=== PATIENT | female | born 1985 | race Caucasian/White ===

== ENCOUNTER 2017-04-21 17:53 | Emergency (ER) | payer MEDICAID ==
[~2017-04-21] VITALS: Wt 68.0 kg
[~2017-04-21 17:53] MED LIST: AZIT500T3 PO; BISM262O23 PO; METR500T PO; PREN1TAB12 PO
[2017-04-21] MEDS ORDERED: KETOROLAC 30 MG INJ IM STA (18:40)
[2017-04-21 19:25] LABS: URINE BLOOD (Dip) POC 3+ (NEGATIVE)
[2017-04-21] MEDS ORDERED: NITROFURANTOIN (SR) 100 MG CAP PO STA (19:34)
[2017-04-21] MEDS ORDERED: NITR-58 PO (19:35)
[2017-04-21] MEDS ORDERED: PHEN-538 PO (19:37)
[2017-04-21 19:49] VITALS: BP 126/77; PULSE 74; RESP 18; TEMP 97.8
--- NOTE | 2017-04-23 21:09 | ERD ---
ER Documentation Chief Complaint Date/Time DATE: 04/23/17 TIME: 21:05 Chief Complaint LOW BACK PAIN FOR THE PAST 2 DAYS. DYSURIA AND HEMATURIA HPI This is a 31-year-old female presenting to the emergency department complaining of pelvic and lower back pain for the past 2 days. Patient rates the pain 8 out of 10. She also admits to having painful urination and blood in the urine. She denies any fevers. Denies any and medication for this ROS All systems reviewed and are negative except as per history of present illness. Medications Home Meds Active Scripts Phenazopyridine Hcl* (Pyridium*) 200 Mg Tab, 200 MG PO TID Y for URINARY PAIN, # 6 TAB Prov:SIRI REBOLLAR PA-C 04/21/17 Nitrofurantoin Monohyd Macrocr* (Macrobid*) 100 Mg Capsr, 100 MG PO BID, #14 CAP Prov:SIRI REBOLLAR PA-C 04/21/17 Bismuth Subsalicylate* (Pepto-Bismol*) 262 Mg/15 Ml Oral.susp, 15 ML PO Q3H for 7 Days, ML Prov:BRIGITTE SANTIAGO MD 08/15/16 Metronidazole* (Flagyl*) 500 Mg Tablet, 500 MG PO TID for 7 Days, TAB Prov:BRIGITTE SANTIAGO MD 08/15/16 Azithromycin* (Zithromax*) 500 Mg Tablet, 500 MG PO DAILY for 3 Days, TAB Prov:BRIGITTE SANTIAGO MD 08/15/16 Reported Medications Vit/Fe Fumarate/Fa ( 1-1 Tablet) 1 Tab Tablet, 1 TAB PO DAILY, #1 10/18/12 Allergies Allergies: Coded Allergies: No Known Drug Allergies (Verified Allergy, Unknown, 05/23/16) PMhx/Soc History of Surgery: No Anesthesia Reaction: No Hx Neurological Disorder: No Hx Respiratory Disorders: No Hx Cardiac Disorders: No Hx Psychiatric Problems: No Hx Miscellaneous Medical Probl: No Hx Alcohol Use: No Hx Substance Use: No Hx Tobacco Use: No Smoking Status: Never smoker Physical Exam Vitals Vital Signs Date Time Temp Pulse Resp B/P Pulse Ox O2 Delivery O2 Flow Rate FiO2 04/21/17 19:49 97.8 74 18 126/77 100 Room Air 04/21/17 17:56 98.5 96 20 136/71 98 Physical Exam GENERAL: well-developed/well-nourished, in no apparent distress, non-toxic appearing HENT: NC/AT, moist mucous membranes EYES: Conjunctiva normal NECK: Supple, no lymphadenopathy PULM: CTA bilaterally, no rales, rhonchi, or wheezing heard CV: Normal S1S2, RRR, good capillary refill GI: Soft, non-distended, tender to palpation and pelvic region Normal bowel sounds, no masses or organomegaly felt on exam No gross peritonitis, no bruits Negative Rovsing, negative Tai, negative McBurney's point, Negative CVAT BACK: No masses EXT: No clubbing, cyanosis, or edema NEURO: Alert and Orientated SKIN: Intact, normal turgor PSYCH: Normal mood and mentation Results 24 hrs Laboratory Tests Test 04/21/17 19:31 Bedside Urine pH (LAB) 7.0 Bedside Urine Protein (LAB) 1+ Bedside Urine Glucose (UA) Negative Bedside Urine Ketones (LAB) Negative Bedside Urine Blood 3+ Bedside Urine Nitrite (LAB) Negative Bedside Urine Leukocyte Esterase (L 3+ Current Medications Medications (Trade) Dose Ordered Sig/George Route PRN Reason Start Time Stop Time Status Last Admin Dose Admin Ketorolac Tromethamine (Toradol) 30 mg ONCE STAT IM 04/21/17 18:40 04/21/17 18:42 DC 04/21/17 19:28 Nitrofurantoin Macrocrystals (Macrobid) 100 mg ONCE STAT PO 04/21/17 19:34 04/21/17 19:35 DC 04/21/17 19:49 Procedures/MDM This is a 31-year-old female presenting to the emergency department complaining of flank pain, dysuria and hematuria for the past 2 days which is likely due to urinary tract infection. I will low suspicion for pyelonephritis. Patient appears well, nontoxic appearing. She did not have any CVA tenderness. In the ED p urinalysis was done and was positive for urinary tract infection. Urine test negative. I discussed with her to return to the ER for worsening symptoms. She understands and agrees with plan. Prescription for Macrobid was provided Departure Diagnosis: Primary Impression: UTI (urinary tract infection) Condition: Stable Patient Instructions: Understanding Urinary Tract Infections (UTIs) Additional Instructions: FOLLOW UP WITH YOUR PRIMARY CARE PHYSICIAN TOMORROW.Return to this facility if you are not improving as expected. Take all medicines as directed. Return to this facility if you are not improving as expected. SIRI REBOLLAR PA-C Apr 23, 2017 21:08
== END 2017-04-21 19:50 | disposition home or self-care (01) ==
LOC: FTE 17:53
DX: N39.0 Urinary tract infection, site not specified (principal)
CPT/HCPCS: 81003; J1885; Z7610; 96372

== ENCOUNTER 2017-05-06 17:43 | Emergency (ER) | payer MEDICAID ==
[~2017-05-06] VITALS: Wt 68.5 kg
[~2017-05-06 17:43] MED LIST changes: +NITR-58 PO; +PHEN-538 PO
[2017-05-06] MEDS ORDERED: KETOROLAC 30 MG INJ IM STA (18:47)
[2017-05-06] MEDS ORDERED: CEFTRIAXONE 1 GM INJ IM ONE (19:00)
[2017-05-06] MEDS ORDERED: LIDOCAINE 2% (MDV) 20 ML INJ INJ ONE (19:00)
[2017-05-06 19:14] LABS: URINE BLOOD (Dip) POC Trace-intact (NEGATIVE)
--- NOTE | 2017-05-06 19:25 | RADRPT ---
PROCEDURE: Retroperitoneal US. CLINICAL INDICATION: Flank pain TECHNIQUE: Multiple sonographic images of the kidneys and retroperitoneum were obtained. The imag es were reviewed on a PACS workstation. COMPARISON: No prior studies are available for comparison. FINDINGS: The kidneys are normal in size, contour, cortical thickness and cortical echogenicity. The right kidney measures 12.0 cm. The left kidney measures 11.1 cm. No kidney stones are visualized. There is no evidence for hydronephrosis. The urinary bladder is normal. RPTAT: AA IMPRESSION: Unremarkable retroperitoneal ultrasound. .Gigi Olivares MD, MD Date Time Electronically viewed and signed by .Gigi Olivares MD, on 05/06/2017 19:25 .S/
[2017-05-06 20:07] LABS: BASOPHIL # 0.1 10^3/ul (0.0-0.1); BASOPHILS % 0.6 % (0.0-2.0); EOSINOPHILS # 0.2 10^3/ul (0.0-0.5); EOSINOPHILS % 1.5 % (0.0-7.0); HEMATOCRIT 38.1 % (37.0-47.0); HEMOGLOBIN 12.2 g/dl (12.0-16.0); LYMPHOCYTES # 1.9 10^3/ul (0.8-2.9); LYMPHOCYTES % 17.9 % (15.0-51.0); MEAN CORPUSCULAR HEMOGLOBIN 27.9 pg (29.0-33.0); MEAN CORPUSCULAR VOLUME 87.2 fl (82.0-101.0); MEAN PLATELET VOLUME 9.4 fl (7.4-10.4); MONOCYTE # 0.7 10^3/ul (0.3-0.9); MONOCYTES % 6.8 % (0.0-11.0); NEUTROPHIL # 7.5 10^3/ul (1.6-7.5); NEUTROPHILS % 72.4 % (39.0-77.0); PLATELET COUNT 436 10^3/UL (140-415); RED BLOOD COUNT 4.37 10^6/ul (4.20-5.40); RED CELL DISTRIBUTION WIDTH 13.8 % (11.5-14.5); WHITE BLOOD COUNT 10.4 10^3/ul (4.8-10.8)
[2017-05-06 20:18] LABS: ADD UMIC YES; UR ASCORBIC ACID NEGATIVE (NEGATIVE); UR BILIRUBIN (Dip) NEGATIVE (NEGATIVE); UR BLOOD (Dip) NEGATIVE (NEGATIVE); UR CLARITY CLOUDY (CLEAR); UR COLOR YELLOW (YELLOW); UR GLUCOSE (Dip) NEGATIVE (NEGATIVE); UR KETONES (Dip) NEGATIVE (NEGATIVE); UR LEUKOCYTE ESTERASE (Dip) 3+ Leu/ul (NEGATIVE); UR NITRITE (Dip) NEGATIVE (NEGATIVE); UR RBC 5 /HPF (0-5); UR SPECIFIC GRAVITY (Dip) 1.018 (1.003-1.030); UR SQUAMOUS EPITHELIAL CELL FEW /HPF (FEW); UR TOTAL PROTEIN (Dip) 1+ mg/dl (NEGATIVE); UR UROBILINOGEN (Dip) 1+ mg/dL (NEGATIVE)
[2017-05-06 20:29] LABS: ALBUMIN 4.7 g/dl (3.3-4.9); ALBUMIN/GLOBULIN RATIO 1.14; BILIRUBIN,INDIRECT 0.2 mg/dl (0-1.1); BILIRUBIN,TOTAL 0.2 mg/dl (0.2-1.3); CALCIUM 9.1 mg/dl (8.4-10.2); CREATININE 0.73 mg/dl (0.44-1.00); POTASSIUM 3.9 mmol/L (3.5-5.1); TOTAL PROTEIN 8.8 g/dl (6.1-8.1)
[2017-05-06] MEDS ORDERED: CIPR500T4 PO (20:35)
[2017-05-06] MEDS ORDERED: NAPR-260 PO (20:36)
--- NOTE | 2017-05-06 20:57 | ERD ---
ER Documentation Chief Complaint Date/Time DATE: 05/06/17 TIME: 20:52 Chief Complaint BACK PAIN WITH DYSURIA X 2 DAYS HPI This patient is a 32-year-old female presenting to the emergency department with complaints of right mid back pain and dysuria worsening over the past 2 days. The patient was seen here approximately 2 weeks ago and was diagnosed with UTI and sent home with a prescription for Macrobid twice a day for 7 days. The patient completed all of her medication. Her symptoms improved slightly after the course of the medication, however then they returned and they are worse now. She rates the pain a 9 out of 10 on the pain scale. Symptoms are intermittent. Symptoms are worsening overall. She denies hematuria, nausea, vomiting, diarrhea, or other symptoms currently. ROS All systems reviewed and are negative except as per history of present illness. Medications Home Meds Active Scripts Naproxen* (Naprosyn*) 500 Mg Tablet, 500 MG PO BID Y for PAIN AND/OR INFLAMMATION, #30 TAB Prov:FENG JAIMES PA-C 05/06/17 Ciprofloxacin Hcl* (Ciprofloxacin Hcl*) 500 Mg Tablet, 500 MG PO BID for 10 Days , #20 TAB Prov:FENG JAIMES PA-C 05/06/17 Phenazopyridine Hcl* (Pyridium*) 200 Mg Tab, 200 MG PO TID Y for URINARY PAIN, # 6 TAB Prov:SIRI REBOLLAR PA-C 04/21/17 Nitrofurantoin Monohyd Macrocr* (Macrobid*) 100 Mg Capsr, 100 MG PO BID, #14 CAP Prov:SIRI REBOLLAR PA-C 04/21/17 Bismuth Subsalicylate* (Pepto-Bismol*) 262 Mg/15 Ml Oral.susp, 15 ML PO Q3H for 7 Days, ML Prov:BRIGITTE SANTIAGO MD 08/15/16 Metronidazole* (Flagyl*) 500 Mg Tablet, 500 MG PO TID for 7 Days, TAB Prov:BRIGITTE SANTIAGO MD 08/15/16 Azithromycin* (Zithromax*) 500 Mg Tablet, 500 MG PO DAILY for 3 Days, TAB Prov:BRIGITTE SANTIAGO MD 08/15/16 Reported Medications Vit/Fe Fumarate/Fa ( 1-1 Tablet) 1 Tab Tablet, 1 TAB PO DAILY, #1 10/18/12 Allergies Allergies: Coded Allergies: No Known Drug Allergies (Verified Allergy, Unknown, 05/23/16) PMhx/Soc History of Surgery: No Anesthesia Reaction: No Hx Neurological Disorder: No Hx Respiratory Disorders: No Hx Cardiac Disorders: No Hx Psychiatric Problems: No Hx Miscellaneous Medical Probl: No Hx Alcohol Use: No Hx Substance Use: No Hx Tobacco Use: No Smoking Status: Never smoker Physical Exam Vitals Vital Signs Date Time Temp Pulse Resp B/P Pulse Ox O2 Delivery O2 Flow Rate FiO2 05/06/17 17:50 99.1 86 20 141/72 99 Physical Exam Const: Nontoxic, well-appearing female in mild distress secondary to pain. Head: Atraumatic Eyes: Normal Conjunctiva ENT: Normal External Ears, Nose and Mouth. Neck: Full range of motion..~ No meningismus. Resp: Clear to auscultation bilaterally Cardio: Regular rate and rhythm, no murmurs Abd: Soft, non tender, non distended. Normal bowel sounds. No suprapubic pain on palpation. No rebound tenderness or guarding. Skin: No petechiae or rashes Back: No midline or flank tenderness. The patient does have CVA tenderness noted on the right. Ext: No cyanosis, or edema Neur: Awake and alert Psych: Normal Mood and Affect Result Diagram: 05/06/17192605/06/171926 Results 24 hrs Laboratory Tests Test 05/06/17 19:20 05/06/17 19:27 Bedside Urine pH (LAB) 7.5 Bedside Urine Protein (LAB) 1+ Bedside Urine Glucose (UA) Negative Bedside Urine Ketones (LAB) Negative Bedside Urine Blood Trace-intact Bedside Urine Nitrite (LAB) Negative Bedside Urine Leukocyte Esterase (L 3+ White Blood Count 10.410^3/ul Red Blood Count 4.3710^6/ul Hemoglobin 12.2g/dl Hematocrit 38.1% Mean Corpuscular Volume 87.2fl Mean Corpuscular Hemoglobin 27.9pg Mean Corpuscular Hemoglobin Concent 32.0g/dl Red Cell Distribution Width 13.8% Platelet Count 59314^3/UL Mean Platelet Volume 9.4fl Neutrophils % 72.4% Lymphocytes % 17.9% Monocytes % 6.8% Eosinophils % 1.5% Basophils % 0.6% Nucleated Red Blood Cells % 0.0/100WBC Neutrophils # 7.510^3/ul Lymphocytes # 1.910^3/ul Monocytes # 0.710^3/ul Eosinophils # 0.210^3/ul Basophils # 0.110^3/ul Nucleated Red Blood Cells # 0.010^3/ul Urine Color YELLOW Urine Clarity CLOUDY Urine pH 7.0 Urine Specific [place] 1.018 Urine Ketones NEGATIVEmg/dL Urine Nitrite NEGATIVEmg/dL Urine Bilirubin NEGATIVEmg/dL Urine Urobilinogen 1+mg/dL Urine Leukocyte Esterase 3+Funmilayo/ul Urine Microscopic RBC 5/HPF Urine Microscopic WBC > 182/HPF Urine Squamous Epithelial Cells FEW/HPF Urine Hemoglobin NEGATIVEmg/dL Urine Glucose NEGATIVEmg/dL Urine Total Protein 1+mg/dl Sodium Level 145mmol/L Potassium Level 3.9mmol/L Chloride Level 104mmol/L Carbon Dioxide Level 24mmol/L Anion Gap 21 Blood Urea Nitrogen 13mg/dl Creatinine 0.73mg/dl Glucose Level 109mg/dl Calcium Level 9.1mg/dl Total Bilirubin 0.2mg/dl Direct Bilirubin 0.00mg/dl Indirect Bilirubin 0.2mg/dl Aspartate Amino Transf (AST/SGOT) 24IU/L Alanine Aminotransferase (ALT/SGPT) 26IU/L Alkaline Phosphatase 75IU/L Total Protein 8.8g/dl Albumin 4.7g/dl Globulin 4.10g/dl Albumin/Globulin Ratio 1.14 Current Medications Medications (Trade) Dose Ordered Sig/George Route PRN Reason Start Time Stop Time Status Last Admin Dose Admin Ketorolac Tromethamine (Toradol) 30 mg ONCE STAT IM 05/06/17 18:47 05/06/17 18:50 DC 05/06/17 19:19 Ceftriaxone Sodium (Rocephin) 1 gm ONCE ONCE IM 05/06/17 19:00 05/06/17 19:01 DC 05/06/17 19:19 Lidocaine (Xylocaine 2% (Mdv) 20 ml) 20 ml ONCE ONCE INJ 05/06/17 19:00 05/06/17 19:01 DC 05/06/17 19:[address] [address] Radiology Main Line: [phone] DIAGNOSTIC IMAGING REPORT Patient: NAHUM OLSON : 1985 Age: 32 Sex: F MR #: [id number] DOS: 05/06/17 0000 Ordering MD: FENG JAIMES PA-C Location: [facility] Room/Bed: PROCEDURE: Retroperitoneal US. CLINICAL INDICATION: Flank pain TECHNIQUE: Multiple sonographic images of the kidneys and retroperitoneum were obtained. The images were reviewed on a PACS workstation. COMPARISON: No prior studies are available for comparison. FINDINGS: The kidneys are normal in size, contour, cortical thickness and cortical echogenicity. The right kidney measures 12.0 cm. The left kidney measures 11.1 cm. No kidney stones are visualized. There is no evidence for hydronephrosis. The urinary bladder is normal. RPTAT: AA IMPRESSION: Unremarkable retroperitoneal ultrasound. .Gigi Olivares MD MD Date Time Electronically viewed and signed by .Gigi Olivares MD, MD on 05/06/2017 19: 25 .S/ CC: FENG JAIMES PA-C Procedures/[facility] 32-year-old female presents to the emergency department with complaints of right mid back pain as well as dysuria. The patient was recently treated for urinary tract infection with Macrobid, however despite this treatment she still has positive leukocytes and proteinuria in her urine at this time. Kidney ultrasound was negative for acute findings. The patient showed no signs of leukocytosis or anemia. Chem panel was negative for acute findings. The patient 's workup in the department as well as her exam is concerning for possible early pyelonephritis. She was given IM 1 g Rocephin in the department, 30 mg IM Toradol in the department. She was feeling improved upon reevaluation during her ED course. She did not show any signs of life-threatening illness in the department and her vital signs were stable throughout her ED course, making her a candidate for outpatient management with a prescription for ciprofloxacin twice daily for 10 days. She was also given a prescription for naproxen to be taken only as needed for pain. At time of discharge I have low suspicion for complicated pyelonephritis, sepsis, or other emergent conditions. The patient is to have close follow-up with her primary care physician and she should return to the department immediately with any new or worsening symptoms. Her questions and concerns were addressed and she was given a copy of her results. Departure Diagnosis: Primary Impression: Urinary tract infection Condition: Fair Patient Instructions: Understanding Urinary Tract Infections (UTIs) Referrals: [facility] YOU HAVE RECEIVED A MEDICAL SCREENING EXAM AND THE RESULTS INDICATE THAT YOU DO NOT HAVE A CONDITION THAT REQUIRES URGENT TREATMENT IN THE EMERGENCY DEPARTMENT. FURTHER EVALUATION AND TREATMENT OF YOUR CONDITION CAN WAIT UNTIL YOU ARE SEEN IN YOUR DOCTORS OFFICE WITHIN THE NEXT 1-2 DAYS. IT IS YOUR RESPONSIBILITY TO MAKE AN APPOINTMENT FOR FOLOW-UP CARE. IF YOU HAVE A PRIMARY DOCTOR --you should call your primary doctor and schedule an appointment IF YOU DO NOT HAVE A PRIMARY DOCTOR YOU CAN CALL OUR PHYSICIAN REFERRAL HOTLINE AT IF YOU CAN NOT AFFORD TO SEE A PHYSICIAN YOU CAN CHOSE FROM THE FOLLOWING [facility] [address] [facility]. [facility] [address] [facility] [address] [facility]. [facility] [address] [facility] [facility] [address] [facility] [facility]. [address] Additional Instructions: Follow up with your PCP within the next 1-3 days for a repeat evaluation. If you require a referral to a specialist, your Primary Care Provider may be able to provide this for you. In most patient cases, a referral is not required. If you have further questions regarding this matter, please ask your Primary Care Provider. Return the the emergency department immediately if symptoms worsen or change. If you have any questions regarding medications, ask your pharmacist or us before you leave. If any adverse reactions, occur while taking your medications, discontinue the treatment and return to the emergency department immediately. If any new or worsening symptoms, uncontrolled fevers, or other unexplained symptoms occur, return to the emergency department immediately. Take your medications as directed, and complete the entire course of treatment. FENG JAIMES PA-C May 06, 2017 20:57
== END 2017-05-06 20:45 | disposition home or self-care (01) ==
LOC: FTE 17:43
DX: N39.0 Urinary tract infection, site not specified (principal)
CPT/HCPCS: 76775; 80053; 81001; 85025; 87086; 96372; J0696; J1885; Z7502; Z7610; 81003

== ENCOUNTER 2018-07-29 00:30 | Inpatient (IN) | END 2018-07-31 20:05 | disposition home or self-care (01) | DRG 807 ==